=== PATIENT | female | born 1955 | race Caucasian/White ===

== ENCOUNTER → 2016-08-05 | Outpatient (CLI) | payer OTHER ==
[~2016-08-05] MED LIST: CALC8.5C PO; CARB1SOL8 OTB; CLON1TAB3 PO; DOCU-94 PO; LANS30TA3 PO; LEVO50TA PO; LINA1CAP2 PEG; LITH1TAB PO; MULT-506 PO; POLY335025 PO; POTA-335 PO; QUET300T2 PO; SODI1ENE RE
--- NOTE | 2016-08-06 14:35 | MAMMOGRAPHY REPORT ---
BILATERAL DIGITAL SCREENING MAMMOGRAM WITH CAD: 08/05/2016 CLINICAL HISTORY: Routine screening. Patient has no complaints. TECHNIQUE: Bilateral CC and MLO views were obtained. Current study was also evaluated with a Comput er Aided Detection (CAD) system. COMPARISON: Comparison is made to exams dated: 07/24/2015 mammogram, 07/20/2014 mammogram, 07/18/2013 ma mmogram, 07/14/2012 mammogram, 07/14/2011 mammogram, and 07/11/2010 mammogram - [facility]. BREAST COMPOSITION: There are scattered areas of fibroglandular density in both breasts. FINDINGS: The exam is suboptimal due to inability of the patient to adequately position for the exam , despite assistance from second agricultural engineering technologist during the exam. Within this limitation, the parenchymal pattern is stable compared to prior mammograms. There are punctate benign-appearing microcalcifications, stable bilaterally. No new suspicious mass, architectural distortion or clust er of microcalcifications is seen. IMPRESSION: ACR BI-RADS CATEGORY 1: NEGATIVE There is no mammographic evidence of malignancy. A 1 year screening mammogram is recommended. The p atient will receive written notification of the results. Approximately 10% of breast cancers are not detected with mammography. A negative mammographic repor t should not delay biopsy if a clinically suggestive mass is present. Maribell Arriaga M.D. ay/:08/05/2016 17:05:27 Fence Builder: Tonia CHAUDHRY)(Di), [facility] letter sent: Normal 1/2 BI-RADS Code: ACR BI-RADS Category 1: Negative
== END | disposition home or self-care (01) ==
LOC: C.MAMM 14:34
PROVIDERS: ATTEND Physician Assistant
DX: Z12.31 Encounter for screening mammogram for malignant neoplasm of breast (principal)

== ENCOUNTER → 2017-08-06 | Outpatient (CLI) | payer OTHER ==
--- NOTE | 2017-08-06 14:45 | MAMMOGRAPHY REPORT ---
BILATERAL DIGITAL SCREENING MAMMOGRAM WITH CAD: 08/06/2017 CLINICAL HISTORY: Routine screening. TECHNIQUE: Current study was also evaluated with a Computer Aided Detection (CAD) system. Bilateral CC and MLO views were obtained. COMPARISON: Comparison is made to exams dated: 08/05/2016 mammogram, 07/24/2015 mammogram, 07/20/2014 ma mmogram, 07/18/2013 mammogram, 07/14/2012 mammogram, and 07/14/2011 mammogram - [facility] BREAST COMPOSITION: There are scattered areas of fibroglandular density in both breasts. FINDINGS: No suspicious masses, calcifications, or areas of architectural distortion are noted in ei ther breast. There has been no significant interval change compared to prior exams. Scattered bilate ral benign-appearing calcifications are not significantly changed. Asymmetry seen within the left br east middle depth on the MLO view is stable compared to prior exams including the 2011 exam and consi dered benign given long-term stability. IMPRESSION: ACR BI-RADS CATEGORY 2: BENIGN There is no mammographic evidence of malignancy. A 1 year screening mammogram is recommended. The pa tient will receive written notification of the results. Approximately 10% of breast cancers are not detected with mammography. A negative mammographic report should not delay biopsy if a clinically suggestive mass is present. Chayo Martinez M.D. ah/:08/06/2017 12:40:55 Attending Technologist: Zoey Milton RT(R)(M), [facility] Brood Hatchery Manager: Nguyen Fontana RT(R)(M), [facility] letter sent: Normal 1/2 BI-RADS Code: ACR BI-RADS Category 2: Benign
== END | disposition home or self-care (01) ==
LOC: C.MAMM 11:08
PROVIDERS: ATTEND Family Medicine
DX: Z12.31 Encounter for screening mammogram for malignant neoplasm of breast (principal)